=== PATIENT | male | born 1965 | race Caucasian/White ===

== ENCOUNTER 2019-04-28 11:31 | Inpatient (IN) | payer OTHER ==
[2019-04-28 12:37] VITALS: BMI 28.3
--- NOTE | 2019-04-28 16:51 | HP ---
COWS - Scale Resting Pulse: 1= [place] 81-100 Sweatin= Chills/Flushing Restless Observation: 1= Difficult to Sit Still Pupil Size: 0= Normal to Room Light Bone or Joint Aches: 2= Severe Diffuse Aches Runny Nose/ Eye Tearin= Runny Nose/Eyes GI Upset > 30mins: 1= Stomach Cramp Tremor Observation: 0= None Yawning Observation: 0= None Anxiety or Irritability: 0= None Goose Flesh Skin: 0=Smooth Skin COWS Score: 8 CIWA Score Nausea/Vomitin-No Nausea/No Vomiting Muscle Tremors: None Anxiety: 0-No Anxiety, at Ease Agitation: 1-Slight > Activity Paroxysmal Sweats: 2 Orientation: 0-Oriented Tacttile Disturbances: 0-None Auditory Disturbances: 0-None Visual Disturbances: 0-None Headache: 1-Very Mild CIWA-Ar Total Score: 4 - Admission Criteria OASAS Guidelines: Admission for Medically Managed Detox: Requires at least one of the followin. CIWA greater than 12 2. Seizures within the past 24 hours 3. Delirium tremens within the past 24 hours 4. Hallucinations within the past 24 hours 5. Acute intervention needed for co occurring medical disorder 6. Acute intervention needed for co occurring psychiatric disorder 7. Severe withdrawal that cannot be handled at a lower level of care (continued vomiting, continued diarrhea, abnormal vital signs) requiring intravenous medication and/or fluids 8. Admission ROS [facility] Allergies/Adverse Reactions: Allergies Allergy/AdvReac Type Severity Reaction Status Date / Time No Known Allergies Allergy Verified 04/28/19 12:32 History of Present Illness: Search Terms: esa noriega, 1965 Search Date: 04/28/2019 04:45:16 PM The Drug Utilization Report below displays all of the controlled substance prescriptions, if any, that your patient has filled in the last twelve months. The information displayed on this report is compiled from pharmacy submissions to the Department, and accurately reflects the information as submitted by the pharmacies. This report was requested by: Meagan Cyr | Reference #: [id number] There are no results for the search terms that you entered. pt here requesting detox from etoh and heroin use , reports heroin since 2006 , current daily use 10 bags heroin /day via inhalation , denies ivdu , latest use yesterday , current symptoms as above , prior detox x 3 most recently 2 mo ago , denies OD , denies prior MMTP , etoh : 1 pint vodka daily x 1 month , latest use yesterday , current symptoms as above , denies blackouts or seizures , starts drinking in the mornings . cocaine : 1/2 gr denies ivdu " once in a blue , not every day " tobacco : 4-5 cigs/day denies other illicits pmhx : denies pshx : denies meds : denies Psych : denies Exam Limitations: No Limitations - Ebola screening Have you traveled outside of the country in the last 21 days: No (N) Have you had contact with anyone from an Ebola affected area: No Do you have a fever: No - Review of Systems Constitutional: See HPI EENT: reports: Other (dentures upper and lower) Respiratory: reports: No Symptoms reported Cardiac: reports: No Symptoms Reported GI: reports: See HPI : reports: No Symptoms Reported Musculoskeletal: reports: See HPI Integumentary: reports: No Symptoms Reported Neuro: reports: See HPI, Headache Endocrine: reports: No Symptoms Reported Psychiatric: reports: Orientated x3 Patient History - Smoking Cessation Smoking history: Current every day smoker Have you smoked in the past 12 months: Yes Hx Chewing Tobacco Use: No Initiated information on smoking cessation: No - Substances abused Alcohol Substance route: Oral Frequency: Daily Amount used: 1 pint of vodka Age of first use: 20 Date of last use: 04/27/19 Heroin Substance route: Inhalation Frequency: Daily Amount used: 8-10 bags a day Age of first use: 47 Date of last use: 04/27/19 Admission Physical Exam S - Vital Signs Vital Signs: Vital Signs - 24 hr 04/28/19 12:31 Temperature 97.7 F Pulse Rate 81 Respiratory 18 Rate Blood Pressure 122/83 - Physical General Appearance: Yes: Mild Distress HEENTM: Yes: EOMI, Normocephalic, Normal Voice, Hearing Decreased Respiratory: Yes: Lungs Clear, No Respiratory Distress, No Accessory Muscle Use Neck: Yes: No masses,lesions,Nodules, Trachea in good position Cardiology: Yes: Regular Rhythm, Regular Rate, S1, S2 Abdominal: Yes: Non Tender, Soft Musculoskeletal: Yes: Gait Steady Extremities: Yes: Normal Range of Motion, Non-Tender Neurological: Yes: Alert, Motor Strength 5/5 Integumentary: Yes: Warm - Diagnostic (1) Alcohol abuse Current Visit: Yes Status: Acute (2) Opioid dependence Current Visit: Yes Status: Acute Qualifiers: Substance use status: in withdrawal Qualified Code(s): F11.23 - Opioid dependence with withdrawal (3) Cocaine abuse, episodic use Current Visit: Yes Status: Chronic (4) Nicotine dependence Current Visit: Yes Status: Chronic Qualifiers: Nicotine product type: cigarettes Breathalyzer - Breathalyzer Breathalyzer: 0 Urine Drug Screen - Test Device Lot number: [id number] Expiration date: 12/23/20 - Control Is test valid?: Yes - Results Drug screen NEGATIVE: No Urine drug screen results: MARYSE-Cocaine, MOP-Opiates, MTD-Methadone, BZO- Benzodiazepines Inpatient Rehab Admission - Rehab Decision to Admit Inpatient rehab admission?: No
[2019-04-28] MEDS ORDERED: IBUPROFEN 400 MG TABLET (FP) PO PRN (17:21)
[2019-04-28] MEDS ORDERED: ACETAMINOPHEN 325 MG TABLET (FP) PO PRN ×2 (17:21)
[2019-04-28] MEDS ORDERED: MAGNESIUM HYDROX 2400MG/30ML ORAL SUSPENSION 30 ML CUP PO PRN (17:21)
[2019-04-28] MEDS ORDERED: MENTHOL/PHENOL 1 EACH UD MM PRN (17:21)
[2019-04-28] MEDS ORDERED: hydrOXYzine PAMOATE 25 MG CAPSULE (FP) PO PRN (17:21)
[2019-04-28] MEDS ORDERED: MAGNESIUM CITRATE 300 ML BOTTLE PO PRN (17:21)
[2019-04-28] MEDS ORDERED: BISMUTH SUBSALICYLATE 524 MG/30 ML UD PO PRN (17:21)
[2019-04-28] MEDS ORDERED: MAG HYDROX/AL HYDROX/SIMETH 30 ML UNIT-DOSE CUP PO PRN (17:21)
[2019-04-28] MEDS ORDERED: MELATONIN 5 MG TABLETS PO PRN (17:21)
[2019-04-28] MEDS ORDERED: NICOTINE POLACRILEX 2 MG GUM BUC PRN (17:21)
[2019-04-28] MEDS ORDERED: METHADONE HCL 10 MG TABLET (FOR DETOX USE ONLY) PO ONE (17:22)
[2019-04-28] MEDS ORDERED: cloNIDine HCL 0.1 MG TABLET PO PRN (17:22)
[2019-04-28] MEDS: diazePAM 5 MG TABLET PO PRN (17:53)
[2019-04-28] MEDS ORDERED: THIAMINE HCL 100 MG TABLET (FP) PO SCH (22:00)
[2019-04-28] MEDS: diazePAM 5 MG TABLET PO SCH (22:32)
[2019-04-29] MEDS: diazePAM 5 MG TABLET PO SCH ×2 (06:58→13:52)
[2019-04-29] MEDS: diazePAM 5 MG TABLET PO PRN (07:58)
[2019-04-29] MEDS ORDERED: METHADONE HCL 5 MG TABLET (FOR DETOX USE ONLY) PO ONE (10:00)
[2019-04-29] MEDS ORDERED: PRENATAL VITAMINS W/ FOLIC ACID TABLET (FP) PO SCH (10:00)
[2019-04-29 10:21] LABS: HEMATOCRIT 38.9 % (35.4-49); HEMOGLOBIN 13.4 GM/dL (11.7-16.9); MCH 31.1 pg (25.7-33.7); MCHC 34.5 g/dl (32.0-35.9); MEAN CELL VOLUME 89.9 fl (80-96); MEAN PLT VOLUME 9.4 fl (7.5-11.1); PLATELET COUNT 169 K/MM3 (134-434); RBC 4.32 M/mm3 (4.00-5.60); WHITE BLOOD COUNT 5.2 K/mm3 (4.0-10.0)
[2019-04-29 10:47] LABS: ALBUMIN 3.3 g/dl (3.4-5.0); BILIRUBIN,TOTAL 0.5 mg/dL (0.2-1); BLOOD UREA NITROGEN 10.6 mg/dL (7-18); CALCIUM 8.6 mg/dL (8.5-10.1); CREATININE 0.8 mg/dL (0.55-1.3); POTASSIUM 3.9 mmol/L (3.5-5.1); TOT PROT 6.1 g/dl (6.4-8.2)
--- NOTE | 2019-04-29 11:25 | EKG ---
Test Reason : Blood Pressure : / mmHG Vent. Rate : 060 BPM Atrial Rate : 060 BPM P-R Int : 202 ms QRS Dur : 110 ms QT Int : 446 ms P-R-T Axes : 027 016 008 degrees QTc Int : 446 ms NORMAL SINUS RHYTHM NORMAL ECG NO PREVIOUS ECGS AVAILABLE Confirmed by MATT BRASHER MD ([id number]) on 04/29/2019 11:25:46 AM Referred By: Confirmed By:MATT BRASHER MD
--- NOTE | 2019-04-29 16:27 | PN ---
[facility] CIWA - CIWA Score Nausea/Vomitin-No Nausea/No Vomiting Muscle Tremors: None Anxiety: 3 Agitation: 2 Paroxysmal Sweats: 2 Orientation: 0-Oriented Tacttile Disturbances: 0-None Auditory Disturbances: 2-Mild Harshness/Frighten Visual Disturbances: 2-Mild Sensitivity Headache: 0-None Present CIWA-Ar Total Score: 11 BHS COWS - Scale Resting Pulse: 0= [place] 80 or Below Sweatin= Chills/Flushing Restless Observation: 0= Sits Still Pupil Size: 0= Normal to Room Light Bone or Joint Aches: 2= Severe Diffuse Aches Runny Nose/ Eye Tearin= Nasal Congestion GI Upset > 30mins: 0= None Tremor Observation of Outstretched Hands: 0= None Yawning Observation: 1= 1-2x During Session Anxiety or Irritability: 2=Irritable/Anxious Goose Flesh Skin: 3=Piloerection COWS Score: 10 S Progress Note (SOAP) Subjective: Body Aches, Anxious, Sweating. Objective: PATIENT A & O X 3. IN NO ACUTE DISTRESS. 04/29/19 16:29 Vital Signs Temperature 98.1 F 04/29/19 13:45 Pulse Rate 68 04/29/19 13:45 Respiratory Rate 18 04/29/19 13:45 Blood Pressure 90/58 L 04/29/19 13:45 O2 Sat by Pulse Oximetry (%) Laboratory Tests 04/29/19 04/29/19 04/29/19 07:50 07:50 07:50 WBC 5.2 RBC 4.32 Hgb 13.4 Hct 38.9 MCV 89.9 MCH 31.1 MCHC 34.5 RDW 14.0 Plt Count 169 MPV 9.4 Sodium 142 Potassium 3.9 Chloride 104 Carbon Dioxide 32 Anion Gap 6 L BUN 10.6 Creatinine 0.8 Est GFR (CKD-EPI)AfAm 119.88 Est GFR (CKD-EPI)NonAf 103.43 Random Glucose 95 Calcium 8.6 Total Bilirubin 0.5 AST 24 ALT 24 Alkaline Phosphatase 86 Total Protein 6.1 L Albumin 3.3 L RPR Titer Nonreactive LABS NOTED. Assessment: 04/29/19 16:29 WITHDRAWAL SYMPTOMS. HYPOTENSION. 04/29/19 16:29 Plan: CONTINUE DETOX. INCREASE DAILY PO WATER INTAKE.
[2019-04-29 19:40] VITALS: BP 98/59; PULSE 57; TEMP 97.6
[2019-04-30] MEDS ORDERED: diazePAM 5 MG TABLET PO SCH (06:00)
[2019-04-30] MEDS ORDERED: METHADONE HCL 10 MG TABLET (FOR DETOX USE ONLY) PO ONE (10:00)
[2019-05-01] MEDS ORDERED: diazePAM 5 MG TABLET PO ONE (06:00)
[2019-05-01] MEDS ORDERED: METHADONE HCL 5 MG TABLET (FOR DETOX USE ONLY) PO ONE (06:00)
== END 2019-04-29 19:15 | disposition left against medical advice (07) | DRG 770 ==
LOC: YASAS 11:31 → Y3N 17:11
PROVIDERS: ADMIT Surgery; ATTEND Surgery
PROC: HZ2ZZZZ Detoxification Services for Substance Abuse Treatment (ICD-10-PCS; principal; 2019-04-28)
DX: F10.230 Alcohol dependence with withdrawal, uncomplicated (principal); F11.23 Opioid dependence with withdrawal; F14.10 Cocaine abuse, uncomplicated; F17.210 Nicotine dependence, cigarettes, uncomplicated
CPT/HCPCS: 36415; 80053; 85027; 86593; 93005; 93010

== ENCOUNTER 2019-08-09 13:42 | Inpatient (IN) | payer OTHER ==
[2019-08-09 15:49] VITALS: BMI 27.9
--- NOTE | 2019-08-09 18:44 | HP ---
"COWS - Scale Resting Pulse: 0= [place] 80 or Below Sweatin=Flushed/Facial Moisture Restless Observation: 3= Extraneous Movement Pupil Size: 1= Pupils >than Normal (Pupils = 3 mm) Bone or Joint Aches: 1= Mild Discomfort Runny Nose/ Eye Tearin= Nasal Congestion GI Upset > 30mins: 2= Nausea/Diarrhea (Nausea w/o diarrhea) Tremor Observation: 2= Slight Tremor Visible Yawning Observation: 1= 1-2x During Session Anxiety or Irritability: 1=Feels Anxious/Irritable Goose Flesh Skin: 0=Smooth Skin COWS Score: 14 CIWA Score - Admission Criteria OASAS Guidelines: Admission for Medically Managed Detox: Requires at least one of the followin. CIWA greater than 12 2. Seizures within the past 24 hours 3. Delirium tremens within the past 24 hours 4. Hallucinations within the past 24 hours 5. Acute intervention needed for co occurring medical disorder 6. Acute intervention needed for co occurring psychiatric disorder 7. Severe withdrawal that cannot be handled at a lower level of care (continued vomiting, continued diarrhea, abnormal vital signs) requiring intravenous medication and/or fluids 8. Admitting History and Physical - Smoking History Smoking history: Current every day smoker Have you smoked in the past 12 months: Yes Aproximately how many cigarettes per day: 5 Admission ROS [facility] Chief Complaint: I'm having heroin withdrawal. Allergies/Adverse Reactions: Allergies Allergy/AdvReac Type Severity Reaction Status Date / Time No Known Allergies Allergy Verified 08/09/19 15:32 History of Present Illness: 53 yo presents w/ opiate withdrawal seeking detox. Patient in [facility] detox on 04/29 and left AMA. Patient states he maintained his sobriety for almost 1 month. EK04/28/19: NSR Heroin use since age 47. Current daily use 10 bags heroin /day via [place]. States last use this a.m. States stopped using alcohol in May. States bought illicit methadone 2 days. Took 1/2 10 mg tab. Nicotine use since age [age]. States smokes 5-7cigs/day Denies seizures, blackouts, overdoses. [facility] has a Narcan Kit at home. PMHx : Asthma (last exacerbation 4 months ago) MHHx : Denies depression. Denies thoughts of harming self or others. SHx: Domiciled. Unemployed. Denies legal issues. Search Terms: Rafa Fuller, 1965 Search Date: 08/09/2019 06:39:49 PM The Drug Utilization Report below displays all of the controlled substance prescriptions, if any, that your patient has filled in the last twelve months. The information displayed on this report is compiled from pharmacy submissions to the Department, and accurately reflects the information as submitted by the pharmacies. This report was requested by: Florence Aaron | Reference #: [id number] There are no results for the search terms that you entered. Search Terms: Rafa Fuller, 1965 Search Date: 08/09/2019 06:40:37 PM States Searched: [place], [place], [place], [place], [place], [place], [place] The Drug Utilization Report below displays the controlled substance prescriptions, if any, that were dispensed in the indicated state(s). The information displayed on this report is compiled from requests submitted to other states' PMPs, and accurately reflects the information as returned by them. Blank ibarra indicate data not provided by other state. This report was requested by: Florence Aaron | Reference #: [id number] There are no results for the search terms that you entered. Exam Limitations: No Limitations - Ebola screening Have you traveled outside of the country in the last 21 days: No (N) Have you had contact with anyone from an Ebola affected area: No Have you been sick,other than usual withdrawal symptoms: No Do you have a fever: No - Review of Systems Constitutional: Chills, Diaphoresis, Changes in sleep (Difficulty falling asleep ) EENT: reports: Blurred Vision, Nose Congestion Respiratory: reports: No Symptoms reported Cardiac: reports: No Symptoms Reported GI: reports: Nausea, Indigestion (Acid reflux), Abdominal cramping : reports: No Symptoms Reported Musculoskeletal: reports: Back Pain (r/t withdrawal) Integumentary: reports: No Symptoms Reported Neuro: reports: Tremors, Weakness Endocrine: reports: No Symptoms Reported Hematology: reports: No Symptoms Reported Psychiatric: reports: Orientated x3 Patient History - Patient Medical History Hx Asthma: No Hx Chronic Obstructive Pulmonary Disease (COPD): No Hx Cardiac Disorders: No Hx Hypertension: No Hx Seizures: No Hx Diabetes: No Hx Gastrointestinal Disorders: No Hx Genitourinary Disorders: No Hx Sexually Transmitted Disorders: No Hx Renal Disease (ESRD): No Hx Depression: No Hx Suicide Attempt: No Hx Schizophrenia: No - Patient Surgical History Past Surgical History: No Hx Neurologic Surgery: No Hx Cataract Extraction: No Hx Cardiac Surgery: No Hx Lung Surgery: No Hx Breast Surgery: No Hx Breast Biopsy: No Hx Abdominal Surgery: No Hx Appendectomy: No Hx Cholecystectomy: No Hx Genitourinary Surgery: No Hx Section: No Hx Orthopedic Surgery: No Anesthesia Reaction: No - PPD History Previous Implant?: No PPD to be Administered?: Yes - Smoking Cessation Smoking history: Current every day smoker Have you smoked in the past 12 months: Yes Aproximately how many cigarettes per day: 5 Hx Chewing Tobacco Use: No Initiated information on smoking cessation: Yes 'Breaking Loose' booklet given: 08/09/19 - Substance & Tx. History Hx Alcohol Use: Yes Hx Substance Use: Yes Substance Use Type: Alcohol, Cocaine, Heroin, Opiates Hx Substance Use Treatment: Yes (detox, rehab) - Substances abused Alcohol Substance route: Oral Frequency: Daily Amount used: 1 pint of vodka Age of first use: 20 Date of last use: 04/27/19 Heroin Substance route: Inhalation Frequency: Daily Amount used: 8-10 bags a day Age of first use: 47 Date of last use: 08/08/19 Admission Physical Exam BHS - Vital Signs Vital Signs: Vital Signs - 24 hr 08/09/19 15:30 Pulse Rate 77 Respiratory 18 Rate Blood Pressure 119/72 - Physical General Appearance: Yes: Nourished, Mild Distress, Sweating (Increased facial moisture) HEENTM: Yes: EOMI, Hearing grossly Normal, Normocephalic, Normal Voice, RADHA ( Pupils = 3 mm), Pharynx Normal Respiratory: Yes: Lungs Clear (Pulse Ox = 97 %), Normal Breath Sounds, No Respiratory Distress Neck: Yes: No masses,lesions,Nodules, Supple Breast: Yes: Breast Exam Deferred Cardiology: Yes: Regular Rhythm, Regular Rate, S1, S2 Abdominal: Yes: Non Tender, Soft, Increased Bowel Sounds, Protuberent Genitourinary: Yes: Within Normal Limits Back: Yes: Normal Inspection Musculoskeletal: Yes: full range of Motion, Gait Steady Extremities: Yes: Normal Capillary Refill (Peripheral pulses +), Tremors (Mild tremors) Neurological: Yes: regional sales director II-XII NML intact, Fully Oriented, Alert, Motor Strength 5/5 Integumentary: Yes: Normal Color, Warm, Diaphoresis (Increased facial moisture) Lymphatic: Yes: Within Normal Limits - Diagnostic (1) History of asthma Current Visit: Yes Status: Chronic (2) Nicotine dependence Current Visit: Yes Status: Chronic Qualifiers: Nicotine product type: cigarettes Substance use status: uncomplicated Qualified Code(s): F17.210 - Nicotine dependence, cigarettes, uncomplicated (3) Opioid dependence with withdrawal Current Visit: Yes Status: Acute (4) Alcohol use disorder, moderate, in early remission Current Visit: Yes Status: Chronic Cleared for Admission S - Detox or Rehab [facility] Level of Care: Medically Managed Detox Regimen/Protocol: Methadone Claeared for Rehab Admission: No Breathalyzer - Breathalyzer Breathalyzer: 0 Urine Drug Screen - Test Device Lot number: [id number] Expiration date: 03/25/21 - Control Is test valid?: Yes - Results Drug screen NEGATIVE: Yes Urine drug screen results: MOP-Opiates, OXY-Oxycodone, MTD-Methadone Inpatient Rehab Admission - Rehab Decision to Admit Inpatient rehab admission?: No"
[2019-08-09] MEDS ORDERED: IBUPROFEN 400 MG TABLET (FP) PO PRN (19:01)
[2019-08-09] MEDS ORDERED: MELATONIN 5 MG TABLETS PO PRN (19:01)
[2019-08-09] MEDS ORDERED: MAG HYDROX/AL HYDROX/SIMETH 30 ML UNIT-DOSE CUP PO PRN (19:01)
[2019-08-09] MEDS ORDERED: guaiFENesin 200 MG/10 ML 10 ML UNIT-DOSE CUPS PO PRN (19:01)
[2019-08-09] MEDS ORDERED: MAGNESIUM CITRATE 300 ML BOTTLE PO PRN (19:01)
[2019-08-09] MEDS ORDERED: MENTHOL/PHENOL 1 EACH UD MM PRN (19:01)
[2019-08-09] MEDS ORDERED: BISMUTH SUBSALICYLATE 524 MG/30 ML UD PO PRN (19:01)
[2019-08-09] MEDS ORDERED: MAGNESIUM HYDROX 2400MG/30ML ORAL SUSPENSION 30 ML CUP PO PRN (19:01)
[2019-08-09] MEDS ORDERED: ACETAMINOPHEN 325 MG TABLET (FP) PO PRN ×2 (19:01)
[2019-08-09] MEDS ORDERED: clonazePAM 0.5 MG TABLET PO PRN (19:03)
[2019-08-09] MEDS ORDERED: cloNIDine HCL 0.1 MG TABLET PO PRN (19:03)
[2019-08-09] MEDS ORDERED: ALBUTEROL SO4 0.083% IH SOL 2.5 MG/3 ML VIAL.NEB. NEB PRN (19:07)
[2019-08-09] MEDS ORDERED: METHADONE HCL 5 MG TABLET (FOR DETOX USE ONLY) ONE (20:47)
[2019-08-09] MEDS ORDERED: METHADONE HCL 10 MG TABLET (FOR DETOX USE ONLY) ONE (20:47)
[2019-08-09] MEDS ORDERED: METHADONE (DETOX) 20 MG, METHADONE (DETOX) 5 MG PO ONE (22:00)
[2019-08-09] MEDS ORDERED: METHADONE HCL 10 MG TABLET (FOR DETOX USE ONLY) PO ONE (22:00)
[2019-08-09] MEDS: METHOCARBAMOL 500 MG TABLET PO PRN (22:21)
[2019-08-09] MEDS: THIAMINE HCL 100 MG TABLET (FP) PO SCH (22:21)
[2019-08-09] MEDS ORDERED: traZODone HCL 50 MG TABLET (FP) PO ONE (23:00)
[2019-08-10] MEDS ORDERED: METHADONE HCL 5 MG TABLET (FOR DETOX USE ONLY) ONE (08:17)
[2019-08-10] MEDS ORDERED: METHADONE HCL 10 MG TABLET (FOR DETOX USE ONLY) ONE (08:17)
[2019-08-10] MEDS ORDERED: METHADONE (DETOX) 20 MG, METHADONE (DETOX) 5 MG PO ONE (10:00)
[2019-08-10] MEDS: PRENATAL VITAMINS W/ FOLIC ACID TABLET (FP) PO SCH (10:10)
[2019-08-10] MEDS: PANTOPRAZOLE 20 MG TABLET (FP) PO SCH (10:10)
[2019-08-10 12:05] LABS: HEMATOCRIT 43.8 % (35.4-49); HEMOGLOBIN 14.9 GM/dL (11.7-16.9); MCH 31.1 pg (25.7-33.7); MEAN CELL VOLUME 91.6 fl (80-96); MEAN PLT VOLUME 9.5 fl (7.5-11.1); PLATELET COUNT 174 K/MM3 (134-434); RBC 4.78 M/mm3 (4.00-5.60); RDW 13.4 % (11.9-15.9); WHITE BLOOD COUNT 4.8 K/mm3 (4.0-10.0)
[2019-08-10 12:11] LABS: ALBUMIN 3.8 g/dl (3.4-5.0); BILIRUBIN,TOTAL 0.6 mg/dL (0.2-1); BLOOD UREA NITROGEN 12.3 mg/dL (7-18); CALCIUM 9.3 mg/dL (8.5-10.1); CREATININE 0.9 mg/dL (0.55-1.3); POTASSIUM 4.6 mmol/L (3.5-5.1); TOT PROT 6.6 g/dl (6.4-8.2)
--- NOTE | 2019-08-10 13:03 | CONSULT ---
[facility] Psychiatric Consult - Data Date of interview: 08/10/19 Admission source: [facility] Identifying data: Readmission to [facility] for this 53 y/o male self- referred for detoxification (BEATRICE issues : heroin, alcohol, nicotine). Interviewed at [address] [place] [address]. Patient is , a father of three, domiciled and currently employed. Substance Abuse History: Discussed with the patient. Details in current [facility] report as follows : Smoking history: Current every day smoker. Have you smoked in the past 12 months: Yes. Aproximately how many cigarettes per day: 5. Hx Chewing Tobacco Use: No. Initiated information on smoking cessation: Yes. ' Breaking Loose' booklet given: 08/09/19. - Substance & Tx. History. Hx Alcohol Use: Yes. Hx Substance Use: Yes. Substance Use Type: Alcohol, Cocaine , Heroin, Opiates. Hx Substance Use Treatment: Yes (detox, rehab). - Substances abused. Alcohol. Substance route: Oral. Frequency: Daily. Amount used: 1 pint of vodka. Age of first use: 20. Date of last use: . Heroin. Substance route: Inhalation. Frequency: Daily. Amount used: 8 -10 bags a day. Age of first use: 47. Date of last use: 08/08/19 Medical History: Bronchial asthma. Psychiatric History: Patient denies history of psychiatric hospitalizations, OPD care or suicide attempts. Dropped out of methadone maintenance. Physical/Sexual Abuse/Trauma History: Patient denies history of abuse. Trauma : of (cancer). Additional Comment: Urine drug screen results: MOP-Opiates, OXY-Oxycodone, MTD- Methadone. Noted. Mental Status Exam - Mental Status Exam Alert and Oriented to: Time, Place, Person Cognitive Function: Good Patient Appearance: Well Groomed Mood: Withdrawn, Hopeful Affect: Appropriate, Normal Range Patient Behavior: Fatigued, Cooperative Speech Pattern: Clear, Appropriate Voice Loudness: Normal Thought Process: Intact, Goal Oriented Thought Disorder: Not Present Hallucinations: Denies Suicidal Ideation: Denies Homicidal Ideation: Denies Insight/Judgement: Fair Sleep: Poorly, Difficulty falling asleep Appetite: Good Muscle strength/Tone: Normal Gait/Station: Normal Psychiatric Findings - Problem List (Mathews 1, 2,3) (1) Alcohol dependence with withdrawal, uncomplicated Current Visit: Yes Status: Acute (2) Opioid dependence with withdrawal Current Visit: Yes Status: Acute (3) Nicotine dependence Current Visit: Yes Status: Chronic Qualifiers: Nicotine product type: cigarettes Substance use status: uncomplicated Qualified Code(s): F17.210 - Nicotine dependence, cigarettes, uncomplicated (4) Insomnia Current Visit: Yes Status: Chronic - Initial Treatment Plan Initial Treatment Plan: Psychoeducation. Sleep hygiene. Detoxification. AA/NA meetings. Insomnia is addressed with trazodone 50 mg po hs (patient's request). Patient is made aware of the risk of priapism. Gave verbal consent to Observation.
--- NOTE | 2019-08-10 15:14 | PN ---
BHS COWS - Scale Resting Pulse: 0= [place] 80 or Below Sweatin= Chills/Flushing Restless Observation: 1= Difficult to Sit Still Pupil Size: 0= Normal to Room Light Bone or Joint Aches: 1= Mild Discomfort Runny Nose/ Eye Tearin= Nasal Congestion GI Upset > 30mins: 0= None Tremor Observation of Outstretched Hands: 0= None Yawning Observation: 1= 1-2x During Session Anxiety or Irritability: 1=Feels Anxious/Irritable Goose Flesh Skin: 0=Smooth Skin COWS Score: 6 BHS Progress Note (SOAP) Subjective: c/o of interrupted sleep, chills, sweats Objective: 08/10/19 15:12 Vital Signs Temperature 96.9 F L 08/10/19 13:03 Pulse Rate 55 L 08/10/19 13:03 Respiratory Rate 17 08/10/19 13:03 Blood Pressure 90/60 08/10/19 13:03 O2 Sat by Pulse Oximetry (%) Laboratory Last Values WBC 4.8 K/mm3 (4.0-10.0) 08/10/19 08:20 RBC 4.78 M/mm3 (4.00-5.60) 08/10/19 08:20 Hgb 14.9 GM/dL (11.7-16.9) 08/10/19 08:20 Hct 43.8 % (35.4-49) 08/10/19 08:20 MCV 91.6 fl (80-96) 08/10/19 08:20 MCH 31.1 pg (25.7-33.7) 08/10/19 08:20 MCHC 34.0 g/dl (32.0-35.9) 08/10/19 08:20 RDW 13.4 % (11.9-15.9) 08/10/19 08:20 Plt Count 174 K/MM3 (134-434) 08/10/19 08:20 MPV 9.5 fl (7.5-11.1) 08/10/19 08:20 Sodium 142 mmol/L (136-145) 08/10/19 08:20 Potassium 4.6 mmol/L (3.5-5.1) 08/10/19 08:20 Chloride 106 mmol/L (98-107) 08/10/19 08:20 Carbon Dioxide 34 mmol/L (21-32) H 08/10/19 08:20 Anion Gap 2 MMOL/L (8-16) L 08/10/19 08:20 BUN 12.3 mg/dL (7-18) 08/10/19 08:20 Creatinine 0.9 mg/dL (0.55-1.3) 08/10/19 08:20 Est GFR (CKD-EPI)AfAm 114.21 08/10/19 08:20 Est GFR (CKD-EPI)NonAf 98.54 08/10/19 08:20 Random Glucose 104 mg/dL (74-106) 08/10/19 08:20 Calcium 9.3 mg/dL (8.5-10.1) 08/10/19 08:20 Total Bilirubin 0.6 mg/dL (0.2-1) 08/10/19 08:20 AST 25 U/L (15-37) 08/10/19 08:20 ALT 28 U/L (13-61) 08/10/19 08:20 Alkaline Phosphatase 85 U/L (45-117) 08/10/19 08:20 Total Protein 6.6 g/dl (6.4-8.2) 08/10/19 08:20 Albumin 3.8 g/dl (3.4-5.0) 08/10/19 08:20 Assessment: 08/10/19 15:13 Aox3 no acute distress full ROM no gait abnormality withdrawal sx Plan: increase fluids continue detox
[2019-08-10] MEDS: NICOTINE POLACRILEX 2 MG GUM BUC PRN (15:44)
[2019-08-10] MEDS: THIAMINE HCL 100 MG TABLET (FP) PO SCH (22:29)
[2019-08-10] MEDS: traZODone HCL 50 MG TABLET (FP) PO SCH (22:29)
[2019-08-11] MEDS: NICOTINE POLACRILEX 2 MG GUM BUC PRN ×2 (08:24→14:33)
--- NOTE | 2019-08-11 09:39 | PN ---
BHS COWS - Scale Resting Pulse: 0= [place] 80 or Below Sweatin= Chills/Flushing Restless Observation: 0= Sits Still Pupil Size: 0= Normal to Room Light Bone or Joint Aches: 1= Mild Discomfort Runny Nose/ Eye Tearin= None GI Upset > 30mins: 0= None Tremor Observation of Outstretched Hands: 1= Tremor [place], Not Seen Yawning Observation: 1= 1-2x During Session Anxiety or Irritability: 1=Feels Anxious/Irritable Goose Flesh Skin: 0=Smooth Skin COWS Score: 5 BHS Progress Note (SOAP) Subjective: doing well with methadone detox regimen less body aches ambulating on hallway social with peers in day room encourage medication assisted treatment program and pick kelvin from pharmacy Objective: 08/11/19 09:36 Vital Signs Temperature 98.6 F 08/11/19 09:07 Pulse Rate 54 L 08/11/19 09:07 Respiratory Rate 18 08/11/19 09:07 Blood Pressure 113/69 08/11/19 09:07 O2 Sat by Pulse Oximetry (%) Laboratory Last Values WBC 4.8 K/mm3 (4.0-10.0) 08/10/19 08:20 RBC 4.78 M/mm3 (4.00-5.60) 08/10/19 08:20 Hgb 14.9 GM/dL (11.7-16.9) 08/10/19 08:20 Hct 43.8 % (35.4-49) 08/10/19 08:20 MCV 91.6 fl (80-96) 08/10/19 08:20 MCH 31.1 pg (25.7-33.7) 08/10/19 08:20 MCHC 34.0 g/dl (32.0-35.9) 08/10/19 08:20 RDW 13.4 % (11.9-15.9) 08/10/19 08:20 Plt Count 174 K/MM3 (134-434) 08/10/19 08:20 MPV 9.5 fl (7.5-11.1) 08/10/19 08:20 Sodium 142 mmol/L (136-145) 08/10/19 08:20 Potassium 4.6 mmol/L (3.5-5.1) 08/10/19 08:20 Chloride 106 mmol/L (98-107) 08/10/19 08:20 Carbon Dioxide 34 mmol/L (21-32) H 08/10/19 08:20 Anion Gap 2 MMOL/L (8-16) L 08/10/19 08:20 BUN 12.3 mg/dL (7-18) 08/10/19 08:20 Creatinine 0.9 mg/dL (0.55-1.3) 08/10/19 08:20 Est GFR (CKD-EPI)AfAm 114.21 08/10/19 08:20 Est GFR (CKD-EPI)NonAf 98.54 08/10/19 08:20 Random Glucose 104 mg/dL (74-106) 08/10/19 08:20 Calcium 9.3 mg/dL (8.5-10.1) 08/10/19 08:20 Total Bilirubin 0.6 mg/dL (0.2-1) 08/10/19 08:20 AST 25 U/L (15-37) 08/10/19 08:20 ALT 28 U/L (13-61) 08/10/19 08:20 Alkaline Phosphatase 85 U/L (45-117) 08/10/19 08:20 Total Protein 6.6 g/dl (6.4-8.2) 08/10/19 08:20 Albumin 3.8 g/dl (3.4-5.0) 08/10/19 08:20 HIV 1&2 Antibody Screen Negative 08/10/19 08:20 HIV P24 Antigen Negative 08/10/19 08:20 lab noted Assessment: 08/11/19 09:38 opioid withdrawal sx Plan: continue methadone detox regimen
[2019-08-11] MEDS ORDERED: METHADONE HCL 10 MG TABLET (FOR DETOX USE ONLY) PO ONE (10:00)
[2019-08-11] MEDS: PRENATAL VITAMINS W/ FOLIC ACID TABLET (FP) PO SCH (10:03)
[2019-08-11] MEDS: METHOCARBAMOL 500 MG TABLET PO PRN (10:04)
[2019-08-11] MEDS: PANTOPRAZOLE 20 MG TABLET (FP) PO SCH (10:04)
[2019-08-11] MEDS: traZODone HCL 50 MG TABLET (FP) PO SCH (22:05)
[2019-08-11] MEDS: THIAMINE HCL 100 MG TABLET (FP) PO SCH (22:06)
[2019-08-12] MEDS ORDERED: METHADONE HCL 5 MG TABLET (FOR DETOX USE ONLY) ONE (09:20)
[2019-08-12] MEDS ORDERED: METHADONE HCL 10 MG TABLET (FOR DETOX USE ONLY) ONE (09:20)
[2019-08-12] MEDS ORDERED: METHADONE (DETOX) 10 MG, METHADONE (DETOX) 5 MG PO ONE (10:00)
[2019-08-12] MEDS: PRENATAL VITAMINS W/ FOLIC ACID TABLET (FP) PO SCH (10:07)
[2019-08-12] MEDS: PANTOPRAZOLE 20 MG TABLET (FP) PO SCH (10:07)
[2019-08-12] MEDS: METHOCARBAMOL 500 MG TABLET PO PRN (10:08)
--- NOTE | 2019-08-12 10:14 | PN ---
BHS COWS - Scale Resting Pulse: 0= [place] 80 or Below Sweatin= Chills/Flushing Restless Observation: 1= Difficult to Sit Still Pupil Size: 0= Normal to Room Light Bone or Joint Aches: 1= Mild Discomfort Runny Nose/ Eye Tearin= Runny Nose/Eyes GI Upset > 30mins: 1= Stomach Cramp Tremor Observation of Outstretched Hands: 1= Tremor [place], Not Seen Yawning Observation: 0= None Anxiety or Irritability: 1=Feels Anxious/Irritable Goose Flesh Skin: 0=Smooth Skin COWS Score: 8 BHS Progress Note (SOAP) Subjective: c/o of abdominal cramps, chills, sweats, interrupted sleep Objective: 08/12/19 10:12 Vital Signs Temperature 98.9 F 08/12/19 09:04 Pulse Rate 52 L 08/12/19 09:04 Respiratory Rate 18 08/12/19 09:04 Blood Pressure 105/65 08/12/19 09:04 O2 Sat by Pulse Oximetry (%) Laboratory Last Values WBC 4.8 K/mm3 (4.0-10.0) 08/10/19 08:20 RBC 4.78 M/mm3 (4.00-5.60) 08/10/19 08:20 Hgb 14.9 GM/dL (11.7-16.9) 08/10/19 08:20 Hct 43.8 % (35.4-49) 08/10/19 08:20 MCV 91.6 fl (80-96) 08/10/19 08:20 MCH 31.1 pg (25.7-33.7) 08/10/19 08:20 MCHC 34.0 g/dl (32.0-35.9) 08/10/19 08:20 RDW 13.4 % (11.9-15.9) 08/10/19 08:20 Plt Count 174 K/MM3 (134-434) 08/10/19 08:20 MPV 9.5 fl (7.5-11.1) 08/10/19 08:20 Sodium 142 mmol/L (136-145) 08/10/19 08:20 Potassium 4.6 mmol/L (3.5-5.1) 08/10/19 08:20 Chloride 106 mmol/L (98-107) 08/10/19 08:20 Carbon Dioxide 34 mmol/L (21-32) H 08/10/19 08:20 Anion Gap 2 MMOL/L (8-16) L 08/10/19 08:20 BUN 12.3 mg/dL (7-18) 08/10/19 08:20 Creatinine 0.9 mg/dL (0.55-1.3) 08/10/19 08:20 Est GFR (CKD-EPI)AfAm 114.21 08/10/19 08:20 Est GFR (CKD-EPI)NonAf 98.54 08/10/19 08:20 Random Glucose 104 mg/dL (74-106) 08/10/19 08:20 Calcium 9.3 mg/dL (8.5-10.1) 08/10/19 08:20 Total Bilirubin 0.6 mg/dL (0.2-1) 08/10/19 08:20 AST 25 U/L (15-37) 08/10/19 08:20 ALT 28 U/L (13-61) 08/10/19 08:20 Alkaline Phosphatase 85 U/L (45-117) 08/10/19 08:20 Total Protein 6.6 g/dl (6.4-8.2) 08/10/19 08:20 Albumin 3.8 g/dl (3.4-5.0) 08/10/19 08:20 RPR Titer Nonreactive (NONREACTIVE) 08/10/19 08:20 HIV 1&2 Antibody Screen Negative 08/10/19 08:20 HIV P24 Antigen Negative 08/10/19 08:20 Assessment: 08/12/19 10:13 Aox3 no acute distress EENT WNL No adventitious breath sounds Full ROM, ambulating in the unit withdrawal sx Plan: increase PO fluids continue detox continue to monitor
[2019-08-12] MEDS: NICOTINE POLACRILEX 2 MG GUM BUC PRN (12:26)
[2019-08-12] MEDS ORDERED: clonazePAM 0.5 MG TABLET PO PRN (19:03)
[2019-08-12] MEDS: traZODone HCL 50 MG TABLET (FP) PO SCH (22:21)
[2019-08-12] MEDS: THIAMINE HCL 100 MG TABLET (FP) PO SCH (22:21)
[2019-08-13 06:00] VITALS: BP 111/69; PULSE 57; TEMP 97.4
[2019-08-13] MEDS: PANTOPRAZOLE 20 MG TABLET (FP) PO SCH (09:02)
[2019-08-13] MEDS: PRENATAL VITAMINS W/ FOLIC ACID TABLET (FP) PO SCH (09:02)
[2019-08-13] MEDS ORDERED: METHADONE HCL 10 MG TABLET (FOR DETOX USE ONLY) PO ONE (10:00)
--- NOTE | 2019-08-13 12:19 | DS ---
[facility] Detox Discharge Summary Admission Date: 08/09/19 Discharge Date: 08/13/19 - History Present History: Opioid Dependence Pertinent Past History: Pt completed opioid detox protocol. Left before i saw pt today. - Physical Exam Results Vital Signs: Vital Signs Temperature 97.4 F L 08/13/19 05:59 Pulse Rate 57 L 08/13/19 05:59 Respiratory Rate 18 08/13/19 05:59 Blood Pressure 111/69 08/13/19 05:59 O2 Sat by Pulse Oximetry (%) - Treatment Hospital Course: Detox Protocol Followed, Detoxed Safely, Responded well, Discharged Condition Good - Medication Discharge Medications: Ambulatory Orders Naloxone HCl [Narcan] 4 mg NS ASDIR PRN #1 spray 08/11/19 - AMA Did Patient Leave Against Medical Advice: No
[2019-08-14] MEDS ORDERED: METHADONE HCL 5 MG TABLET (FOR DETOX USE ONLY) PO ONE (06:00)
== END 2019-08-13 09:10 | disposition home or self-care (01) | DRG 773 ==
LOC: YASAS 13:42 → Y3N 19:14
PROVIDERS: ADMIT Allergy & Immunology; ATTEND Allergy & Immunology
PROC: HZ2ZZZZ Detoxification Services for Substance Abuse Treatment (ICD-10-PCS; principal; 2019-08-09)
DX: F11.23 Opioid dependence with withdrawal (principal); F10.230 Alcohol dependence with withdrawal, uncomplicated; F17.210 Nicotine dependence, cigarettes, uncomplicated; G47.00 Insomnia, unspecified; Z87.09 Personal history of other diseases of the respiratory system
CPT/HCPCS: 36415; 80053; 85027; 86593; 87389; J0735

== ENCOUNTER 2019-11-15 13:49 | Inpatient (IN) | payer OTHER ==
[2019-11-15 14:31] VITALS: BMI 26.4
--- NOTE | 2019-11-15 18:33 | HP ---
COWS - Scale Resting Pulse: 0= [place] 80 or Below Sweatin= No chills or Flushing Restless Observation: 1= Difficult to Sit Still Pupil Size: 1= Pupils >than Normal Bone or Joint Aches: 1= Mild Discomfort Runny Nose/ Eye Tearin= Runny Nose/Eyes GI Upset > 30mins: 2= Nausea/Diarrhea Tremor Observation: 2= Slight Tremor Visible Yawning Observation: 0= None Anxiety or Irritability: 1=Feels Anxious/Irritable Goose Flesh Skin: 0=Smooth Skin COWS Score: 10 CIWA Score Nausea/Vomitin-Mild Nausea/No Vomiting Muscle Tremors: 4-Moderate,w/Arms Extend Anxiety: 1-Mildly Anxious Agitation: 1-Slight > Activity Paroxysmal Sweats: No Perspiration Orientation: 0-Oriented Tacttile Disturbances: 0-None Auditory Disturbances: 0-None Visual Disturbances: 0-None Headache: 0-None Present CIWA-Ar Total Score: 7 - Admission Criteria OASAS Guidelines: Admission for Medically Managed Detox: Requires at least one of the followin. CIWA greater than 12 2. Seizures within the past 24 hours 3. Delirium tremens within the past 24 hours 4. Hallucinations within the past 24 hours 5. Acute intervention needed for co occurring medical disorder 6. Acute intervention needed for co occurring psychiatric disorder 7. Severe withdrawal that cannot be handled at a lower level of care (continued vomiting, continued diarrhea, abnormal vital signs) requiring intravenous medication and/or fluids 8. Patient presents the following: Acute intervention needed for co-occurring med or psych disorder Admission Criteria Met: Admission criteria met Admitting History and Physical - Admission History of Present Illness: 53 yo m w/ PMH asthma who comes into [facility] for detox from ETOH and heroin. Patient endorses sniffing 10-12 bags of heroin daily since he was 47. His last use was this morning. Patient denies overdose in the past. Patient states that he has a narcan kit at home and knows how to use it. The patient endorses drinking 1 pt of vodka daily. His last use was last night. He denies blackouts or seizures in the past. The patient endorses sniffing 1 gram 3 times per week since he was 20. his last use was yesterday. Patient endorses taking 10mg of methadone he bought off the street approx. 2 days ago. COWS 10 CIWA 7 Patient meets inpatient criteria. will admit for valium/MTD detox. Will order EKG since patient uses cocaine and had prolonged QT on previous EKG History Source: Patient Limitations to Obtaining History: No Limitations - Past Medical History Pulmonary: Yes: Asthma Psych: Yes: Addictions - Smoking History Smoking history: Current every day smoker Have you smoked in the past 12 months: Yes Aproximately how many cigarettes per day: 5 - Alcohol/Substance Use Hx Alcohol Use: Yes Admission [facility] Allergies/Adverse Reactions: Allergies Allergy/AdvReac Type Severity Reaction Status Date / Time No Known Allergies Allergy Verified 11/15/19 14:21 - Ebola screening Have you traveled outside of the country in the last 21 days: No Have you had contact with anyone from an Ebola affected area: No Do you have a fever: No - Review of Systems Constitutional: Malaise, Weakness EENT: reports: Tearing, Nose Congestion Respiratory: reports: No Symptoms reported Cardiac: reports: No Symptoms Reported GI: reports: Nausea Musculoskeletal: reports: Muscle Pain Neuro: reports: Headache Psychiatric: reports: Judgement Intact, Mood/Affect Appropiate, Orientated x3 Patient History - Patient Medical History Hx Asthma: No Hx Chronic Obstructive Pulmonary Disease (COPD): No Hx Cardiac Disorders: No Hx Hypertension: No Hx Seizures: No Hx Diabetes: No Hx Gastrointestinal Disorders: No Hx Genitourinary Disorders: No Hx Sexually Transmitted Disorders: No Hx Renal Disease (ESRD): No Hx Depression: No Hx Suicide Attempt: No Hx Schizophrenia: No - Patient Surgical History Past Surgical History: No Hx Neurologic Surgery: No Hx Cataract Extraction: No Hx Cardiac Surgery: No Hx Lung Surgery: No Hx Breast Surgery: No Hx Breast Biopsy: No Hx Abdominal Surgery: No Hx Appendectomy: No Hx Cholecystectomy: No Hx Genitourinary Surgery: No Hx Section: No Hx Orthopedic Surgery: No Anesthesia Reaction: No - PPD History Date: 08/11/19 - Smoking Cessation Smoking history: Current every day smoker Have you smoked in the past 12 months: Yes Aproximately how many cigarettes per day: 5 Hx Chewing Tobacco Use: No Initiated information on smoking cessation: Yes 'Breaking Loose' booklet given: 11/15/19 - Substances abused Heroin Substance route: Inhalation Frequency: Daily Amount used: 10-12BAGS Age of first use: 47 Date of last use: 11/15/19 Alcohol Substance route: Oral Frequency: Daily Amount used: VODKA- 1PT Age of first use: 20 Date of last use: 11/14/19 Cocaine Substance route: Inhalation Frequency: 1-2 times per week Amount used: $50 Age of first use: 20 Date of last use: 11/14/19 Admission Physical Exam [facility] - Vital Signs Vital Signs: Vital Signs - 24 hr 11/15/19 11/15/19 14:17 17:26 Temperature 97.1 F L 97.1 F L Pulse Rate 58 L 58 L Respiratory 19 19 Rate Blood Pressure 114/65 114/65 - Physical General Appearance: Yes: Nourished, Mild Distress, Tremorous, Anxious HEENTM: Yes: EOMI, Normal ENT Inspection, RADHA Respiratory: Yes: Chest Non-Tender, Lungs Clear, Normal Breath Sounds, No Respiratory Distress, No Accessory Muscle Use Cardiology: Yes: Regular Rhythm, Regular Rate, S1, S2. No: JVD, Murmur, Gallop/ S3, Gallop/S4 Abdominal: Yes: Normal Bowel Sounds, Non Tender, Flat, Soft Neurological: Yes: laundry clerk II-XII NML intact, Fully Oriented, Alert, Motor Strength 5/5, Normal Mood/Affect, Normal Response Integumentary: Yes: Normal Color, Dry, Warm - Diagnostic (1) Alcohol abuse Current Visit: No Status: Acute (2) Opioid dependence with withdrawal Current Visit: No Status: Acute (3) Cocaine abuse, episodic use Current Visit: No Status: Chronic (4) History of asthma Current Visit: No Status: Chronic (5) Nicotine dependence Current Visit: No Status: Chronic Qualifiers: Nicotine product type: cigarettes Substance use status: uncomplicated Qualified Code(s): F17.210 - Nicotine dependence, cigarettes, uncomplicated Cleared for Admission [facility] - Detox or Rehab [facility] Level of Care: Medically Managed Detox Regimen/Protocol: Methadone/Valium Breathalyzer - Breathalyzer Breathalyzer: 0 Urine Drug Screen - Test Device Lot number: [id number] Expiration date: 05/25/21 - Control Is test valid?: Yes - Results Drug screen NEGATIVE: No Urine drug screen results: MARYSE-Cocaine, FEN-Fentanyl, MOP-Opiates, MTD-Methadone , BZO-Benzodiazepines Inpatient Rehab Admission - Rehab Decision to Admit Inpatient rehab admission?: No
--- NOTE | 2019-11-15 18:59 | PN ---
"Teaching Attending Note Name of Resident: Hakeem Rose ATTENDING PHYSICIAN STATEMENT I saw and evaluated the patient. I reviewed the resident's note and discussed the case with the resident. I agree with the resident's findings and plan as documented. SUBJECTIVE:53 yo male here for heroin and etoh detox . heroin : 10-12 bags/day since age 47. etoh : 1 pint vodka/ day , denies blackouts or seizures methadone : illicit use 10 mg PMH asthma OBJECTIVE: wnwd Search Terms: esa leann, 1965 Search Date: 11/15/2019 06:58:57 PM The Drug Utilization Report below displays all of the controlled substance prescriptions, if any, that your patient has filled in the last twelve months. The information displayed on this report is compiled from pharmacy submissions to the Department, and accurately reflects the information as submitted by the pharmacies. This report was requested by: Meagan Cyr | Reference #: [id number] There are no results for the search terms that you entered. EKG : incomplete R BBB , sinus bradycardia - pt advised to f/up w/ cardiology and advise staff of any symptoms ASSESSMENT AND PLAN: OUD - Methadone detox AUD - Valium detox"
[2019-11-15] MEDS ORDERED: METHOCARBAMOL 500 MG TABLET PO PRN (19:11)
[2019-11-15] MEDS ORDERED: MAGNESIUM HYDROX 2400MG/30ML ORAL SUSPENSION 30 ML CUP PO PRN (19:11)
[2019-11-15] MEDS ORDERED: MAG HYDROX/AL HYDROX/SIMETH 30 ML UNIT-DOSE CUP PO PRN (19:11)
[2019-11-15] MEDS ORDERED: MAGNESIUM CITRATE 300 ML BOTTLE PO PRN (19:11)
[2019-11-15] MEDS ORDERED: cloNIDine HCL 0.1 MG TABLET PO PRN (19:11)
[2019-11-15] MEDS ORDERED: MELATONIN 5 MG TABLETS PO PRN (19:11)
[2019-11-15] MEDS ORDERED: METHADONE HCL 10 MG TABLET (FOR DETOX USE ONLY) PO ONE (19:11)
[2019-11-15] MEDS ORDERED: IBUPROFEN 400 MG TABLET (FP) PO PRN (19:11)
[2019-11-15] MEDS ORDERED: hydrOXYzine PAMOATE 25 MG CAPSULE (FP) PO PRN (19:11)
[2019-11-15] MEDS ORDERED: ACETAMINOPHEN 325 MG TABLET (FP) PO PRN ×2 (19:11)
[2019-11-15] MEDS ORDERED: BISMUTH SUBSALICYLATE 524 MG/30 ML UD PO PRN (19:11)
[2019-11-15] MEDS ORDERED: NICOTINE POLACRILEX 2 MG GUM BUC PRN (19:11)
[2019-11-15] MEDS ORDERED: MENTHOL/PHENOL 1 EACH UD MM PRN (19:11)
[2019-11-15] MEDS: diazePAM 5 MG TABLET PO PRN (20:38)
[2019-11-15] MEDS: ASPIRIN 81 MG CHEWABLE TABLETS PO SCH (20:43)
[2019-11-15] MEDS: THIAMINE HCL 100 MG TABLET (FP) PO SCH (22:49)
[2019-11-15] MEDS: diazePAM 5 MG TABLET PO SCH (22:49)
[2019-11-16] MEDS: diazePAM 5 MG TABLET PO SCH ×3 (05:31→23:02)
[2019-11-16] MEDS: PRENATAL VITAMINS W/ FOLIC ACID TABLET (FP) PO SCH (09:39)
[2019-11-16] MEDS: ASPIRIN 81 MG CHEWABLE TABLETS PO SCH (09:39)
[2019-11-16] MEDS ORDERED: METHADONE HCL 5 MG TABLET (FOR DETOX USE ONLY) PO ONE (10:00)
--- NOTE | 2019-11-16 10:31 | EKG ---
Test Reason : Blood Pressure : / mmHG Vent. Rate : 049 BPM Atrial Rate : 049 BPM P-R Int : 186 ms QRS Dur : 102 ms QT Int : 448 ms P-R-T Axes : 059 034 017 degrees QTc Int : 404 ms SINUS BRADYCARDIA INCOMPLETE RIGHT BUNDLE BRANCH BLOCK BORDERLINE ECG WHEN COMPARED WITH ECG OF 28-APR-2019 17:14, INCOMPLETE RIGHT BUNDLE BRANCH BLOCK IS NOW PRESENT Confirmed by MARK ANTHONY ZHANG, KEITH ([id number]) on 11/16/2019 10:31:01 AM Referred By: ROEL Confirmed By:KEITH HOPSON MD
--- NOTE | 2019-11-16 11:00 | PN ---
S CIWA - CIWA Score Nausea/Vomitin-Mild Nausea/No Vomiting Muscle Tremors: 3 Anxiety: 4-Mod. Anxious/Guarded Agitation: 0-Normal Activity Paroxysmal Sweats: 2 Orientation: 0-Oriented Tacttile Disturbances: 0-None Auditory Disturbances: 0-None Visual Disturbances: 1-Very Mild Sensitivity Headache: 1-Very Mild CIWA-Ar Total Score: 12 BHS COWS - Scale Resting Pulse: 0= [place] 80 or Below Sweatin= Chills/Flushing Restless Observation: 0= Sits Still Pupil Size: 1= Pupils >than Normal Bone or Joint Aches: 1= Mild Discomfort Runny Nose/ Eye Tearin= None GI Upset > 30mins: 2= Nausea/Diarrhea Tremor Observation of Outstretched Hands: 2= Slight Tremor Visible Yawning Observation: 0= None Anxiety or Irritability: 1=Feels Anxious/Irritable Goose Flesh Skin: 0=Smooth Skin COWS Score: 8 S Progress Note (SOAP) Subjective: 53 years old male admitted on 11/15/19 for alcohol and opiate withdrawal sx management treating with valium and methadone detox regimen less anxious but tremor and tired prefers to stay in bed today limited conversation with staff Objective: 11/16/19 10:59 Vital Signs Temperature 97.9 F 11/16/19 09:22 Pulse Rate 59 L 11/16/19 09:22 Respiratory Rate 18 11/16/19 09:22 Blood Pressure 92/61 11/16/19 09:22 O2 Sat by Pulse Oximetry (%) 11/16/19 10:59 lab pending Assessment: 11/16/19 10:59 alcohol and opiate withdrawal Plan: valium and methadone regiments
[2019-11-16 12:22] LABS: HEMATOCRIT 40.2 % (35.4-49); HEMOGLOBIN 13.7 GM/dL (11.7-16.9); MCHC 34.1 g/dl (32.0-35.9); MEAN PLT VOLUME 9.5 fl (7.5-11.1); PLATELET COUNT 175 K/MM3 (134-434); RBC 4.42 M/mm3 (4.00-5.60); RDW 13.7 % (11.9-15.9); WHITE BLOOD COUNT 5.7 K/mm3 (4.0-10.0)
[2019-11-16 12:56] LABS: ALBUMIN 3.6 g/dl (3.4-5.0); BILIRUBIN,TOTAL 0.2 mg/dL (0.2-1); BLOOD UREA NITROGEN 19.2 mg/dL (7-18); CALCIUM 9.2 mg/dL (8.5-10.1); CREATININE 0.9 mg/dL (0.55-1.3); POTASSIUM 4.5 mmol/L (3.5-5.1); TOT PROT 6.1 g/dl (6.4-8.2)
[2019-11-16] MEDS: diazePAM 5 MG TABLET PO PRN (17:53)
[2019-11-16] MEDS: THIAMINE HCL 100 MG TABLET (FP) PO SCH (23:03)
[2019-11-17] MEDS ORDERED: diazePAM 5 MG TABLET PO SCH (06:00)
[2019-11-17 09:18] VITALS: BP 116/69; PULSE 61; TEMP 97.6
[2019-11-17] MEDS ORDERED: METHADONE HCL 10 MG TABLET (FOR DETOX USE ONLY) PO ONE (10:00)
[2019-11-17] MEDS: ASPIRIN 81 MG CHEWABLE TABLETS PO SCH (10:12)
[2019-11-17] MEDS: PRENATAL VITAMINS W/ FOLIC ACID TABLET (FP) PO SCH (10:12)
--- NOTE | 2019-11-17 12:36 | DS ---
[facility] Detox Discharge Summary Admission Date: 11/15/19 Discharge Date: 11/17/19 - History Present History: Alcohol Dependence, Opioid Dependence Additional Comments: 53 years old male admitted on 11/15/19 for alcohol and opiate withdrawal sx management treated with valium and methadone detox regiments patient is alert oriented x 3 prefers to leave detox unit today case discussed with the nurse routine discharge is appropriated respiratory clear lungs bilaterally on auscultation extremities full range of motion skin warm and dry - Physical Exam Results Vital Signs: Vital Signs Temperature 97.6 F 11/17/19 09:17 Pulse Rate 61 11/17/19 09:17 Respiratory Rate 18 11/17/19 09:17 Blood Pressure 116/69 11/17/19 09:17 O2 Sat by Pulse Oximetry (%) Pertinent Admission Physical Exam Findings: alcohol and opiate withdrawal Laboratory Last Values WBC 5.7 K/mm3 (4.0-10.0) 11/16/19 08:00 RBC 4.42 M/mm3 (4.00-5.60) 11/16/19 08:00 Hgb 13.7 GM/dL (11.7-16.9) 11/16/19 08:00 Hct 40.2 % (35.4-49) 11/16/19 08:00 MCV 91.0 fl (80-96) 11/16/19 08:00 MCH 31.0 pg (25.7-33.7) 11/16/19 08:00 MCHC 34.1 g/dl (32.0-35.9) 11/16/19 08:00 RDW 13.7 % (11.9-15.9) 11/16/19 08:00 Plt Count 175 K/MM3 (134-434) 11/16/19 08:00 MPV 9.5 fl (7.5-11.1) 11/16/19 08:00 Sodium 140 mmol/L (136-145) 11/16/19 08:00 Potassium 4.5 mmol/L (3.5-5.1) 11/16/19 08:00 Chloride 104 mmol/L (98-107) 11/16/19 08:00 Carbon Dioxide 31 mmol/L (21-32) 11/16/19 08:00 Anion Gap 5 MMOL/L (8-16) L 11/16/19 08:00 BUN 19.2 mg/dL (7-18) H 11/16/19 08:00 Creatinine 0.9 mg/dL (0.55-1.3) 11/16/19 08:00 Est GFR (CKD-EPI)AfAm 114.21 11/16/19 08:00 Est GFR (CKD-EPI)NonAf 98.54 11/16/19 08:00 Random Glucose 98 mg/dL (74-106) 11/16/19 08:00 Calcium 9.2 mg/dL (8.5-10.1) 11/16/19 08:00 Total Bilirubin 0.2 mg/dL (0.2-1) 11/16/19 08:00 AST 22 U/L (15-37) 11/16/19 08:00 ALT 24 U/L (13-61) 11/16/19 08:00 Alkaline Phosphatase 96 U/L (45-117) 11/16/19 08:00 Total Protein 6.1 g/dl (6.4-8.2) L 11/16/19 08:00 Albumin 3.6 g/dl (3.4-5.0) 11/16/19 08:00 RPR Titer Nonreactive (NONREACTIVE) 11/16/19 08:00 lab noted - Treatment Hospital Course: Detox Protocol Followed, Detoxed Safely, Responded well, Discharged Condition Good, Rehab Referral Accepted Patient has Accepted a Rehab Referral to: [facility] chemical dependent rehab - Medication Discharge Medications: Ambulatory Orders Naloxone HCl [Narcan] 4 mg NS ASDIR PRN #1 spray 11/16/19 - Diagnosis (1) Nicotine dependence Status: Acute Qualifiers: Nicotine product type: cigarettes Substance use status: in withdrawal Qualified Code(s): F17.213 - Nicotine dependence, cigarettes, with withdrawal (2) Alcohol dependence with withdrawal, uncomplicated Status: Acute (3) Opioid dependence with withdrawal Status: Acute - AMA Did Patient Leave Against Medical Advice: No CIWA Score - CIWA Score Nausea/Vomitin-No Nausea/No Vomiting Muscle Tremors: 2 Anxiety: 3 Agitation: 0-Normal Activity Paroxysmal Sweats: 1-Minimal Palms Moist Orientation: 0-Oriented Tacttile Disturbances: 0-None Auditory Disturbances: 0-None Visual Disturbances: 1-Very Mild Sensitivity Headache: 1-Very Mild CIWA-Ar Total Score: 8 COWS (PN) - Opiate Withdrawal Resting Pulse: 0= [place] 80 or Below Sweatin= No chills or Flushing Restless Observation: 0= Sits Still Pupil Size: 0= Normal to Room Light Bone or Joint Aches: 1= Mild Discomfort Runny Nose/ Eye Tearin= None GI Upset > 30mins: 1= Stomach Cramp Tremor Observation of Outstretched Hands: 1= Tremor [place], Not Seen Yawning Observation: 0= None Anxiety or Irritability: 1=Feels Anxious/Irritable Goose Flesh Skin: 0=Smooth Skin COWS Score: 4
[2019-11-18] MEDS ORDERED: diazePAM 5 MG TABLET PO ONE (06:00)
[2019-11-18] MEDS ORDERED: METHADONE HCL 5 MG TABLET (FOR DETOX USE ONLY) PO ONE (06:00)
== END 2019-11-17 10:50 | disposition home or self-care (01) | DRG 773 ==
LOC: YASAS 13:49 → Y3N 19:43
PROVIDERS: ADMIT Allergy & Immunology; ATTEND Allergy & Immunology
PROC: HZ2ZZZZ Detoxification Services for Substance Abuse Treatment (ICD-10-PCS; principal; 2019-11-15)
DX: F10.230 Alcohol dependence with withdrawal, uncomplicated (principal); F11.23 Opioid dependence with withdrawal; F14.10 Cocaine abuse, uncomplicated; F17.213 Nicotine dependence, cigarettes, with withdrawal; Z87.09 Personal history of other diseases of the respiratory system
CPT/HCPCS: 36415; 80053; 85027; 86593; 93005; 93010

== ENCOUNTER 2021-08-03 10:56 | Inpatient (IN) | payer OTHER ==
[2021-08-03] MEDS ORDERED: NICOTINE POLACRILEX 4 MG GUM BUC PRN (13:49)
[2021-08-03] MEDS ORDERED: cloNIDine HCL 0.1 MG TABLET PO PRN (13:49)
[2021-08-03] MEDS ORDERED: BISMUTH SUBSALICYLATE 524 MG/30 ML PO PRN (13:49)
[2021-08-03] MEDS ORDERED: LORazepam 1 MG TABLET PO PRN (13:49)
[2021-08-03] MEDS ORDERED: MAG HYDROX/AL HYDROX/SIMETH 30 ML UNIT-DOSE CUP PO PRN (13:49)
[2021-08-03] MEDS ORDERED: MAGNESIUM HYDROX 2400MG/30ML ORAL SUSPENSION 30 ML CUP PO PRN (13:49)
[2021-08-03] MEDS ORDERED: MENTHOL/PHENOL 1 EACH UD MM PRN (13:49)
[2021-08-03] MEDS ORDERED: NICOTINE 10 MG CARTRIDGE (INHALER) IH PRN (13:49)
[2021-08-03] MEDS ORDERED: MAGNESIUM CITRATE 300 ML BOTTLE PO PRN (13:49)
[2021-08-03] MEDS ORDERED: ONDANSETRON *ODT* 4 MG TABLET SL PRN (13:49)
[2021-08-03] MEDS ORDERED: ACETAMINOPHEN 325 MG TABLET (FP) PO PRN ×2 (13:49)
[2021-08-03] MEDS ORDERED: methaDONE HCL 10 MG TABLET (FOR DETOX USE ONLY) PO ONE (13:49)
[2021-08-03] MEDS ORDERED: LORazepam 2 MG TABLET PO ONE (13:49)
[2021-08-03 15:01] VITALS: BMI 28.3
[2021-08-03] MEDS: LORazepam 2 MG TABLET PO SCH ×2 (16:52→22:08)
[2021-08-03] MEDS: LIDOCAINE 5% TOPICAL PATCH TP SCH (16:57)
[2021-08-03] MEDS: THIAMINE HCL 100 MG TABLET (FP) PO SCH (22:07)
[2021-08-03] MEDS: METHOCARBAMOL 500 MG TABLET PO PRN (22:07)
[2021-08-03] MEDS: IBUPROFEN 400 MG TABLET (FP) PO PRN (22:07)
[2021-08-03] MEDS: LIDOCAINE PATCH REMOVAL MC SCH (22:15)
[2021-08-03] MEDS: MELATONIN 5 MG TABLETS PO SCH (22:15)
[2021-08-04] MEDS: LORazepam 2 MG TABLET PO SCH ×4 (05:42→22:31)
[2021-08-04] MEDS ORDERED: methaDONE HCL 10 MG TABLET (FOR DETOX USE ONLY) ONE (09:49)
[2021-08-04] MEDS ORDERED: PRENATAL VITAMINS W/ FOLIC ACID TABLET (FP) PO SCH (10:00)
[2021-08-04] MEDS: METHOCARBAMOL 500 MG TABLET PO PRN (10:12)
[2021-08-04] MEDS: LIDOCAINE 5% TOPICAL PATCH TP SCH (10:13)
[2021-08-04] MEDS ORDERED: FLU VACC QS2021-22(6MOS UP)/PF 60 MCG/0.5 ML SYRINGE IM ONE (12:00)
[2021-08-04 13:13] LABS: HEMATOCRIT 44.8 % (35.4-49); HEMOGLOBIN 15.2 GM/dL (11.7-16.9); MCH 31.3 pg (25.7-33.7); MCHC 33.9 g/dl (32.0-35.9); MEAN CELL VOLUME 92.4 fl (80-96); MEAN PLT VOLUME 9.5 fl (7.5-11.1); PLATELET COUNT 211 10^3/uL (134-434); RBC 4.85 M/mm3 (4.00-5.60); RDW 14.3 % (11.9-15.9); WHITE BLOOD COUNT 7.9 K/mm3 (4.0-10.0)
[2021-08-04 13:28] LABS: ALBUMIN 3.7 g/dl (3.4-5.0); BLOOD UREA NITROGEN 10.8 mg/dL (7-18); CALCIUM 8.9 mg/dL (8.5-10.1)
[2021-08-04 13:31] LABS: CREATININE 0.8 mg/dL (0.55-1.3)
[2021-08-04 13:33] LABS: BILIRUBIN,TOTAL 0.5 mg/dL (0.2-1); TOT PROT 7.1 g/dl (6.4-8.2)
[2021-08-04 20:53] VITALS: BP 142/87; PULSE 79; TEMP 97.1
[2021-08-04] MEDS: LIDOCAINE PATCH REMOVAL MC SCH (22:33)
[2021-08-04] MEDS: MELATONIN 5 MG TABLETS PO SCH (22:33)
[2021-08-04] MEDS: THIAMINE HCL 100 MG TABLET (FP) PO SCH (22:33)
[2021-08-05] MEDS: IBUPROFEN 400 MG TABLET (FP) PO PRN (01:24)
[2021-08-05] MEDS: METHOCARBAMOL 500 MG TABLET PO PRN (01:25)
[2021-08-05] MEDS ORDERED: LORazepam 1 MG TABLET PO SCH (05:00)
[2021-08-05] MEDS ORDERED: methaDONE HCL 10 MG TABLET (FOR DETOX USE ONLY) PO ONE (10:00)
[2021-08-06] MEDS ORDERED: LORazepam 0.5 MG TABLET PO PRN
[2021-08-06] MEDS ORDERED: LORazepam 0.5 MG TABLET PO SCH (05:00)
[2021-08-07] MEDS ORDERED: LORazepam 0.5 MG TABLET PO ONE (05:00)
[2021-08-07] MEDS ORDERED: methaDONE HCL 10 MG TABLET (FOR DETOX USE ONLY) PO ONE (10:00)
== END 2021-08-05 03:08 | disposition left against medical advice (07) | DRG 770 ==
LOC: YASAS 10:56 → Y6N 14:19
PROVIDERS: ADMIT Allergy & Immunology; ATTEND Allergy & Immunology
PROC: HZ2ZZZZ Detoxification Services for Substance Abuse Treatment (ICD-10-PCS; principal; 2021-08-03)
DX: F11.23 Opioid dependence with withdrawal (principal); F10.230 Alcohol dependence with withdrawal, uncomplicated; F14.20 Cocaine dependence, uncomplicated; F17.210 Nicotine dependence, cigarettes, uncomplicated; G47.00 Insomnia, unspecified; J45.909 Unspecified asthma, uncomplicated; M54.50 Low back pain, unspecified; G89.29 Other chronic pain
CPT/HCPCS: 36415; 80053; 85027; 86780; 90686; G0008

== ENCOUNTER 2022-05-23 12:06 | Inpatient (IN) | payer OTHER ==
[2022-05-23 12:50] VITALS: BMI 26.6
[2022-05-23] MEDS ORDERED: IBUPROFEN 600 MG TABLET (FP) PO PRN (16:03)
[2022-05-23] MEDS ORDERED: chlordiazePOXIDE HCL 25 MG CAPSULE PO PRN (16:03)
[2022-05-23] MEDS ORDERED: ONDANSETRON *ODT* 4 MG TABLET SL PRN (16:03)
[2022-05-23] MEDS ORDERED: LOPERAMIDE HCL 2 MG CAPSULE PO PRN (16:03)
[2022-05-23] MEDS ORDERED: MAGNESIUM HYDROX 2400MG/30ML ORAL SUSPENSION 30 ML CUP PO PRN (16:03)
[2022-05-23] MEDS ORDERED: NICOTINE 10 MG CARTRIDGE (INHALER) IH PRN (16:03)
[2022-05-23] MEDS ORDERED: MAGNESIUM CITRATE 300 ML BOTTLE PO PRN (16:03)
[2022-05-23] MEDS ORDERED: DICYCLOMINE HCL 10 MG CAPSULE PO PRN (16:03)
[2022-05-23] MEDS ORDERED: BENZOCAINE/MENTHOL (CHLORASEPTIC ) LOZENGE MM PRN (16:03)
[2022-05-23] MEDS ORDERED: MAG HYDROX/AL HYDROX/SIMETH 30 ML UNIT-DOSE CUP PO PRN (16:03)
[2022-05-23] MEDS ORDERED: NICOTINE POLACRILEX 2 MG GUM BUC PRN (16:03)
[2022-05-23] MEDS ORDERED: BISMUTH SUBSALICYLATE 524 MG/30 ML PO PRN (16:03)
[2022-05-23] MEDS ORDERED: ACETAMINOPHEN 325 MG TABLET (FP) PO PRN ×2 (16:03)
[2022-05-23] MEDS ORDERED: METHOCARBAMOL 500 MG TABLET PO PRN (16:03)
[2022-05-23] MEDS ORDERED: IBUPROFEN 400 MG TABLET (FP) PO PRN (16:03)
[2022-05-23] MEDS: chlordiazePOXIDE HCL 25 MG CAPSULE PO SCH ×2 (18:07→22:55)
[2022-05-23] MEDS: hydrOXYzine PAMOATE 25 MG CAPSULE (FP) PO SCH ×2 (18:07→22:55)
[2022-05-23] MEDS: PRENATAL VITAMINS W/ FOLIC ACID TABLET (FP) PO SCH (18:08)
[2022-05-23] MEDS: MELATONIN 5 MG TABLETS PO SCH (22:55)
[2022-05-23] MEDS: THIAMINE HCL 100 MG TABLET (FP) PO SCH (22:55)
[2022-05-24] MEDS: hydrOXYzine PAMOATE 25 MG CAPSULE (FP) PO SCH ×5 (07:22→23:04)
[2022-05-24] MEDS: chlordiazePOXIDE HCL 25 MG CAPSULE PO SCH ×4 (07:22→23:04)
[2022-05-24 09:19] LABS: HEMATOCRIT 38.5 % (35.4-49); HEMOGLOBIN 13.3 GM/dL (11.7-16.9); MCH 30.8 pg (25.7-33.7); MCHC 34.5 g/dl (32.0-35.9); MEAN CELL VOLUME 89.3 fl (80-96); PLATELET COUNT 154 10^3/uL (134-434); RBC 4.31 M/mm3 (4.00-5.60); RDW 14.3 % (11.9-15.9)
[2022-05-24 09:48] LABS: CALCIUM 8.6 mg/dL (8.5-10.1)
[2022-05-24 09:49] LABS: ALBUMIN 3.6 g/dl (3.4-5.0)
[2022-05-24 09:52] LABS: CREATININE 0.9 mg/dL (0.55-1.3)
[2022-05-24 09:53] LABS: TOT PROT 6.5 g/dl (6.4-8.2)
[2022-05-24] MEDS: PRENATAL VITAMINS W/ FOLIC ACID TABLET (FP) PO SCH (12:27)
[2022-05-24] MEDS ORDERED: methaDONE HCL 40 MG DISPERSABLE TABLET PO SCH (14:45)
[2022-05-24] MEDS ORDERED: methaDONE HCL 10 MG TABLET ONE (15:14)
[2022-05-24] MEDS ORDERED: methaDONE HCL 40 MG DISPERSABLE TABLET ONE (15:15)
[2022-05-24] MEDS: methaDONE 40 MG, methaDONE 20 MG PO SCH (15:17)
[2022-05-24 17:44] VITALS: RESP 18
[2022-05-24] MEDS: THIAMINE HCL 100 MG TABLET (FP) PO SCH (23:04)
[2022-05-24] MEDS: MELATONIN 5 MG TABLETS PO SCH (23:04)
[2022-05-25] MEDS ORDERED: methaDONE HCL 40 MG DISPERSABLE TABLET ONE (04:19)
[2022-05-25] MEDS ORDERED: methaDONE HCL 10 MG TABLET ONE (04:19)
[2022-05-25] MEDS: methaDONE 40 MG, methaDONE 20 MG PO SCH (06:40)
[2022-05-25] MEDS: hydrOXYzine PAMOATE 25 MG CAPSULE (FP) PO SCH ×5 (06:41→23:10)
[2022-05-25] MEDS: chlordiazePOXIDE HCL 25 MG CAPSULE PO SCH ×4 (06:41→23:09)
[2022-05-25] MEDS: PRENATAL VITAMINS W/ FOLIC ACID TABLET (FP) PO SCH (10:28)
[2022-05-25] MEDS: MELATONIN 5 MG TABLETS PO SCH (23:09)
[2022-05-25] MEDS: THIAMINE HCL 100 MG TABLET (FP) PO SCH (23:10)
[2022-05-26] MEDS ORDERED: chlordiazePOXIDE HCL 10 MG CAPSULE PO PRN
[2022-05-26] MEDS ORDERED: methaDONE HCL 10 MG TABLET ONE (04:08)
[2022-05-26] MEDS ORDERED: methaDONE HCL 40 MG DISPERSABLE TABLET ONE (04:09)
[2022-05-26] MEDS: hydrOXYzine PAMOATE 25 MG CAPSULE (FP) PO SCH ×2 (06:20→10:25)
[2022-05-26] MEDS: methaDONE 40 MG, methaDONE 20 MG PO SCH (06:20)
[2022-05-26] MEDS: chlordiazePOXIDE HCL 10 MG CAPSULE PO SCH ×2 (06:20→10:25)
[2022-05-26 08:55] VITALS: BP 106/63; PULSE 66; TEMP 97.1
[2022-05-26] MEDS: PRENATAL VITAMINS W/ FOLIC ACID TABLET (FP) PO SCH (10:25)
[2022-05-27] MEDS ORDERED: chlordiazePOXIDE HCL 10 MG CAPSULE PO SCH (05:00)
[2022-05-28] MEDS ORDERED: chlordiazePOXIDE HCL 10 MG CAPSULE PO ONE (05:00)
== END 2022-05-26 11:58 | disposition left against medical advice (07) | DRG 770 ==
LOC: SUATTDRO 12:06 → YASAS 12:06 → Y3N 15:53
PROVIDERS: ADMIT Allergy & Immunology; ATTEND Surgery
PROC: HZ2ZZZZ Detoxification Services for Substance Abuse Treatment (ICD-10-PCS; principal; 2022-05-23)
DX: F10.230 Alcohol dependence with withdrawal, uncomplicated (principal); F11.20 Opioid dependence, uncomplicated; F13.20 Sedative, hypnotic or anxiolytic dependence, uncomplicated; F17.210 Nicotine dependence, cigarettes, uncomplicated; J45.30 Mild persistent asthma, uncomplicated; R74.01 Elevation of levels of liver transaminase levels; U07.1 COVID-19
CPT/HCPCS: 36415; 80053; 85027; 86780; 87811; C9803-CS; U0003; U0005

== ENCOUNTER 2024-10-14 21:29 | Inpatient (IN) | payer OTHER ==
[2024-10-14 16:17] VITALS: BMI 30.1
[2024-10-14] MEDS ORDERED: LOPERAMIDE HCL 2 MG CAPSULE PO PRN (22:42)
[2024-10-14] MEDS ORDERED: IBUPROFEN 400 MG TABLET (FP) PO PRN (22:42)
[2024-10-14] MEDS ORDERED: POLYETHYLENE GLYCOL (HEALTHYLAX) 3350 17 GM PACKET PO PRN (22:42)
[2024-10-14] MEDS ORDERED: MAG HYDROX/AL HYDROX/SIMETH 30 ML UNIT-DOSE CUP PO PRN (22:42)
[2024-10-14] MEDS ORDERED: ONDANSETRON *ODT* 4 MG TABLET SL PRN (22:42)
[2024-10-14] MEDS ORDERED: ACETAMINOPHEN 325 MG TABLET (FP) PO PRN (22:42)
[2024-10-14] MEDS ORDERED: NICOTINE POLACRILEX 2 MG LOZENGE BC PRN (22:42)
[2024-10-14] MEDS ORDERED: BENZOCAINE/MENTHOL (CHLORASEPTIC ) LOZENGE MM PRN (22:42)
[2024-10-14] MEDS ORDERED: DICYCLOMINE HCL 10 MG CAPSULE PO PRN (22:42)
[2024-10-14] MEDS ORDERED: BISMUTH SUBSALICYLATE 524 MG/30 ML PO PRN (22:42)
[2024-10-14] MEDS ORDERED: NALOXONE (NARCAN) HCL 4 MG/0.1 ML SPRAY NS PRN (22:42)
[2024-10-14] MEDS ORDERED: P-EPHED 60MG/TRIPROLIDI 2.5MG TABLET PO PRN (22:42)
[2024-10-14] MEDS ORDERED: MAGNESIUM HYDROX 2400MG/30ML ORAL SUSPENSION 30 ML CUP PO PRN (22:42)
[2024-10-14] MEDS ORDERED: BENZONATATE 200 MG CAPSULE PO PRN (22:42)
[2024-10-14] MEDS ORDERED: guaiFENesin 600 MG TABLET.ER (FP) PO PRN (22:42)
[2024-10-15 09:06] LABS: HEMATOCRIT 36.8 % (35.4-49); HEMOGLOBIN 12.9 GM/dL (11.7-16.9); MCH 31.5 pg (25.7-33.7); MCHC 35.2 g/dl (32.0-35.9); MEAN CELL VOLUME 89.6 fl (80-96); MEAN PLT VOLUME 8.6 fl (7.5-11.1); PLATELET COUNT 176 10^3/uL (134-434); RBC 4.11 M/mm3 (4.00-5.60); RDW 13.7 % (11.9-15.9); WHITE BLOOD COUNT 5.5 K/mm3 (4.0-10.0)
[2024-10-15 09:34] LABS: CHLORIDE 106 mmol/L (98-107); POTASSIUM 4.8 mmol/L (3.5-5.1); SODIUM 142 mmol/L (136-145)
[2024-10-15 09:40] LABS: CALCIUM 8.3 mg/dL (8.5-10.1)
[2024-10-15 09:41] LABS: ALBUMIN 2.8 g/dl (3.4-5.0); ANION GAP 3 mmol/L (4-13); CO2 32 mmol/L (21-32); GLUCOSE,RANDOM 82 mg/dL (74-106)
[2024-10-15 09:44] LABS: CREATININE 0.8 mg/dL (0.55-1.3); SGOT/AST 40 U/L (15-37); SGPT/ALT 27 U/L (13-61)
[2024-10-15 09:46] LABS: BILIRUBIN,TOTAL 0.5 mg/dL (0.2-1); TOT PROT 5.1 g/dl (6.4-8.2)
[2024-10-15 09:47] LABS: ALK PHOS 67 U/L (45-117)
[2024-10-15] MEDS: PRENATAL VITAMINS W/ FOLIC ACID TABLET (FP) PO SCH (09:54)
[2024-10-15] MEDS: methaDONE HCL 10 MG TABLET PO ONE (13:36)
[2024-10-15] MEDS: METHOCARBAMOL 500 MG TABLET PO PRN (22:16)
[2024-10-15] MEDS: MELATONIN 5 MG TABLETS PO SCH (22:16)
[2024-10-15] MEDS: THIAMINE 100 MG TABLET PO SCH (22:16)
[2024-10-16] MEDS: methaDONE HCL 40 MG DISPERSABLE TABLET PO SCH (05:53)
[2024-10-16] MEDS: diazePAM 5 MG TABLET PO SCH (11:30)
[2024-10-16] MEDS: diazePAM 5 MG TABLET PO PRN (12:48)
[2024-10-16] MEDS: IBUPROFEN 600 MG TABLET (FP) PO PRN (20:19)
[2024-10-17] MEDS: NICOTINE POLACRILEX 2 MG GUM BUC PRN (10:15)
[2024-10-18] MEDS: diazePAM 5 MG TABLET PO SCH (05:51)
[2024-10-19] MEDS: diazePAM 5 MG TABLET PO SCH (05:38)
[2024-10-20] MEDS: diazePAM 5 MG TABLET PO ONE (05:30)
[2024-10-20] MEDS: NALOXONE (NYS OPIOID OVERDOSE PROGRAM) 4 MG/0.1 ML SPRAY NS SCH (09:00)
[2024-10-20 09:41] VITALS: BP 136/67; PULSE 78; RESP 18; TEMP 97
== END 2024-10-20 09:33 | disposition home or self-care (01) | DRG 773 ==
LOC: YASAS 21:29 → Y3N 10-15 12:42
PROVIDERS: ADMIT Neuromusculoskeletal Medicine & OMM; ATTEND Neuromusculoskeletal Medicine & OMM
PROC: HZ2ZZZZ Detoxification Services for Substance Abuse Treatment (ICD-10-PCS; principal; 2024-10-15)
DX: F10.230 Alcohol dependence with withdrawal, uncomplicated (principal); F11.20 Opioid dependence, uncomplicated; F14.20 Cocaine dependence, uncomplicated; F17.210 Nicotine dependence, cigarettes, uncomplicated; F39 Unspecified mood [affective] disorder; J45.30 Mild persistent asthma, uncomplicated; M54.50 Low back pain, unspecified; G89.29 Other chronic pain
CPT/HCPCS: 36415; 80053; 80307; 85027; 86780; 93005; 93010